=== PATIENT | female | born 1990 | race Caucasian/White ===

== ENCOUNTER 2017-02-20 21:43 | Emergency (ER) | payer SELFPAY ==
[2017-03-06] MEDS ORDERED: NORCO 5-325 TA1 EACH PO (15:15)
== END 2017-02-20 22:55 | disposition left against medical advice (07) ==
LOC: ER 21:43
DX: Z53.21 Procedure and treatment not carried out due to patient leaving prior to being seen by health care provider (principal)

== ENCOUNTER 2017-03-05 16:15 | Observation (INO) | payer SELFPAY ==
--- NOTE | ~2017-03-05 | HP ---
ADMIT: 03/05/2017 RM/LOC: 2 [facility] MR#: [id number] [place] [id number] GABBY KAUR [address] [place] [address] History and Physical SEX: F AGE: 26 : 1990 DATE OF SERVICE: HISTORY: This is a 26-year-old female, who came to the ER today with complaints of abdominal pain. This started when she awakened this morning. The pain worsened prompting a visit to the ER. She did have associated nausea as well as diarrhea and felt feverish. During her stay in the ER, she gradually had localization of the pain to the right lower quadrant. CT scan of the abdomen and pelvis was performed, which demonstrated acute appendicitis. She also had a mild leukocytosis of 16,000. PAST MEDICAL HISTORY: No chronic illnesses. CURRENT MEDICATIONS: None. ALLERGIES: NO KNOWN MEDICAL ALLERGIES. PRIOR SURGICAL HISTORY: and tubal ligation. FAMILY HISTORY: Noncontributory. REVIEW OF SYSTEMS: A 10-point review of systems is performed and negative for other recent changes with the exception of the intestinal symptoms mentioned above. SOCIAL HISTORY: She does smoke. PHYSICAL EXAMINATION: GENERAL: Gabby is alert, oriented, and in no acute distress. She is afebrile. VITAL SIGNS: Stable. HEENT: Sclerae appear anicteric. NECK: Supple without lymphadenopathy. ADMIT: 03/05/2017 RM/LOC: 2 [facility] MR#: [id number] [id number] [place] [id number] GABBY KAUR [address] [place] [address] History and Physical SEX: F AGE: 26 : 1990 LUNGS: Clear bilaterally. HEART: Regular rate and rhythm. ABDOMEN: Tender to palpation in the right lower quadrant with rebound at McBurney point. EXTREMITIES: Neurovascularly intact x4. IMPRESSION: Acute appendicitis. PLAN: I have recommended proceeding with laparoscopic appendectomy. I discussed the risks of that with Gabby including bleeding, infection, damage to surrounding structures, and conversion to an open procedure. She understands and does wish to proceed. Lion Johnson MD/ muna JOB #: [id number] CC: Lion Johnson, Attending Physician Lion Johnson, Family Physician
[2017-03-06] MEDS ORDERED: NORCO 5-325 TA1 EACH PO (15:15)
--- NOTE | 2017-03-08 15:28 | OR ---
ADMIT: 03/05/2017 RM/LOC: 622 [facility] MR#: [id number] [address] [address] GABBY KAUR [address] [place] [address] Operative/Delivery Room Report SEX: F AGE: 26 : 1990 SURGERY DATE: 03/05/2017 SURGEON: Lion Johnson MD PREOPERATIVE DIAGNOSIS: Acute appendicitis. POSTOPERATIVE DIAGNOSIS: Acute appendicitis. PROCEDURE: Laparoscopic appendectomy. ANESTHESIA: General endotracheal. ESTIMATED BLOOD LOSS: 10 mL. DESCRIPTION OF PROCEDURE: The patient was taken to the operating room and placed supine on the operating room table. General anesthesia was established. The abdomen was prepped and draped in the standard surgical fashion. A 5 mm infraumbilical incision was made in the skin. The fascia was grasped with a Judy clamp and a Veress needle was advanced into the peritoneal cavity. Carbon dioxide was used to insufflate the abdomen to 15 mmHg pressure. The Veress needle was withdrawn and a 5 mm Optiview trocar was placed. A 5 mm suprapubic port and a 12 mm left lower quadrant port were placed under visualization. The appendix was identified acutely inflamed without signs of perforation. The mesoappendix was divided with Harmonic Scalpel back to the base of the appendix. The base was then divided at the cecum with an [place] 45 mm blue stapler. The appendix was placed in an EndoCatch bag and removed through the left lower quadrant port site. The port was replaced. The right lower quadrant was then irrigated. The staple line was intact and there was no bleeding. The ports were removed under visualization without evidence of bleeding. The fascial margin at the 12 mm port site was approximated with 0 Vicryl suture and the suture passer. The abdomen was allowed to deflate. Skin edges were approximated with 4-0 Monocryl in a subcuticular fashion and Dermabond. Local anesthetic was injected at the incisions. Sponge, needle, and instrument counts were correct at the end of the case. The patient tolerated the procedure well and transferred to the recovery area in stable condition. Lion Johnson MD/ muna JOB #: [id number] CC: Lion Johnson, Attending Physician Lion Johnson, Family Physician
--- NOTE | 2017-03-13 11:08 | ER ---
ADMIT: 03/05/2017 RM/LOC: 622 [facility] MR#: [id number] [address] [address] GABBY KAUR [address] [place] [address] Emergency Room Report SEX: F AGE: 26 : 1990 DATE: 03/05/2017 CHIEF COMPLAINT: Abdominal pain. HISTORY OF PRESENT ILLNESS: This is a 26-year-old female, who presents from EMS with severe abdominal pain. Initially when she was brought into the department, she complains of epigastric pain, cramping, sharp, rates as an 8/10. Denies any recent travel or sick contacts. States she has been having off and on chills. Complains of nausea and vomiting. States she had 1 episode of emesis that she noted some bright red blood. She has had a loss of appetite. No diarrhea. No back pain. No neck pain. Worse with movement and relieved by nothing. She has had no previous abdominal surgeries. She has had a she later reported. No chronic diseases. Takes no medications. Has no allergies. She is a half-pack a day smoker. REVIEW OF SYSTEMS: Unremarkable. COURSE IN THE EMERGENCY ROOM: The patient seen and examined. GENERAL: Afebrile and nontoxic, in no acute distress. HEENT: Normocephalic and atraumatic. NECK: Soft and supple. No lymphadenopathy. CHEST: Clear to auscultation. No wheezes, rhonchi, or rales. HEART: Regular rate and rhythm. No tachycardia. ABDOMEN: Soft. She does have some epigastric tenderness. Initially, no McBurney point tenderness. On initial exam, no guarding and no rebound. BACK: No CVA tenderness. SKIN: Warm and dry. EXTREMITIES: Nontender. No pedal edema. NEURO: She is alert and oriented. Mood and affect appropriate. I initially did draw labs on her, started her with a liter of normal saline, gave her Zofran and morphine as needed for pain. Labs returned. White count 16.2, hemoglobin 13, hematocrit 41.4, and platelets 212. Chemistries; significant CO2 of 21, BUN 4, lactic was 1.1. Lipase unremarkable. Serum ADMIT: 03/05/2017 RM/LOC: 622 [facility] MR#: [id number] [address] [address] GABBY KAUR [address] [place] [address] Emergency Room Report SEX: F AGE: 26 : 1990 was negative. I re-examined the patient after fluids and pain control. Now complaining of significant right quadrant tenderness with some guarding. I did proceed the CT abdomen and pelvis shows acute appendicitis. I did speak with Dr. Johnson on-call for General Surgery. They discussed the patient with him. He will be in to see her in the ER for surgical consultation and management. IMPRESSION: Acute appendicitis. DISPOSITION: The patient was discharged to short-stay surgery for a surgical appendectomy. Discharged to surgery in stable condition. RIGO Whitley / Byron Chavez MD / muna JOB #: [id number] CC: Loin Johnson MD, Attending Physician Lion Johnson MD, Family Physician
== END 2017-03-05 22:35 | disposition home or self-care (01) ==
LOC: ER 16:15 → 6PED 19:20 → SSS 19:40 → 6PED 21:41
PROVIDERS: ADMIT Surgery
PROC: 0DTJ4ZZ Resection of Appendix, Percutaneous Endoscopic Approach (ICD-10-PCS; principal; 2017-03-05)
DX: K35.80 Unspecified acute appendicitis (principal); Z98.51 Tubal ligation status

== ENCOUNTER 2017-03-07 01:04 | Emergency (ER) | payer SELFPAY ==
[~2017-03-07 01:04] MED LIST: NORCO 5-325 TA1 EACH PO
--- NOTE | 2017-03-07 19:59 | ER ---
ADMIT: 03/07/2017 RM/LOC: ER [facility] MR#: [id number] [address] [address] GABBY KAUR [address] [place] [address] Emergency Room Report SEX: F AGE: 26 : 1990 DATE: 03/07/2017 The patient is a 26-year-old female, came to the ER with chief complaint of opening of the surgical wound status post laparoscopic appendectomy yesterday. The patient states she noticed the surgical wound of the laparoscopy on the left lower quadrant was mildly open, and there were some few drops of clear discharge from it this afternoon, later on she noticed the wound is closed. There is no more discharge, and the patient just wanted to be double checked. The patient denies any fever, chills, nausea, vomiting, or abdominal pain. On physical examination, the patient was afebrile in the ER in no pain or distress, and the head and neck and chest examination was normal. In the abdomen, there were 3 surgical wounds of the laparoscopy, which were all clean and dry without erythema or fluctuation. The patient was reassured and was discharged to home, return precautions, the patient states she has enough pain killers for postsurgical pain. The patient is in no distress and was discharged to home. Mathew Ramirez MD/ muna JOB #: [id number] CC: Mathew Ramirez MD, Attending Physician Lion Johnson MD, Family Physician
== END 2017-03-07 01:50 | disposition home or self-care (01) ==
LOC: ER 01:04
DX: Z48.815 Encounter for surgical aftercare following surgery on the digestive system (principal); F32.9 Major depressive disorder, single episode, unspecified; Z98.890 Other specified postprocedural states; Z90.49 Acquired absence of other specified parts of digestive tract; Z79.899 Other long term (current) drug therapy